=== PATIENT | male | born 1965 | race Caucasian/White ===

== ENCOUNTER → 2016-08-08 | Outpatient (CLI) | payer OTHER | LOC: EMI 15:30 | DX: M54.12 Radiculopathy, cervical region (principal); M47.812 Spondylosis without myelopathy or radiculopathy, cervical region; M48.02 Spinal stenosis, cervical region | CPT/HCPCS: 72141 ==

== ENCOUNTER → 2016-09-02 | Outpatient (CLI) | payer OTHER | LOC: EMI 15:04 | DX: M25.50 Pain in unspecified joint (principal); M25.852 Other specified joint disorders, left hip | CPT/HCPCS: 73721 ==

== ENCOUNTER → 2020-08-05 | Outpatient (CLI) | payer MEDICARE, SELFPAY ==
[~2020-08-05] MED LIST: ACTONEL150 MG PO; BUTRANS1 EACH TD; GABAPENTIN300 MG PO; MOBIC7.5 MG PO; NORCO 7.5-3251 EACH PO; PRINIVIL10 MG PO; WELLBUTRIN XL300 M1 PO; ZANAFLEX4 MG PO; ZANTAC150 MG PO
== END ==
LOC: KOH-I 12:46
DX: R22.2 Localized swelling, mass and lump, trunk (principal); J44.9 Chronic obstructive pulmonary disease, unspecified; J98.09 Other diseases of bronchus, not elsewhere classified
CPT/HCPCS: 71250

== ENCOUNTER → 2021-10-19 | Outpatient (CLI) | payer MEDICARE | LOC: KOH-I 10-12 15:00 | DX: F17.210 Nicotine dependence, cigarettes, uncomplicated (principal); R91.1 Solitary pulmonary nodule | CPT/HCPCS: 71271 ==

== ENCOUNTER → 2022-01-19 | Outpatient (CLI) | payer MEDICARE | LOC: KOH-I 11:15 | DX: R51.9 Headache, unspecified (principal) | CPT/HCPCS: 70551 ==